=== PATIENT | female | born 1945 | race African-American/Black ===

== ENCOUNTER 2018-08-28 20:23 | Inpatient (IN) | payer MEDICARE, BC ==
[~2018-08-28] VITALS: Ht 170.2 cm; Wt 83.9 kg
[2018-08-28] MEDS ORDERED: SODIUM CHLORIDE 0.9% 1,000 ML IV ONE (21:10)
[2018-08-28 22:20] LABS: BASOPHILS % 0.9 % (0.0-2.0); EOSINOPHILS % 1.5 % (0.0-5.0); HEMATOCRIT. 45.8 % (36.0-48.0); HEMOGLOBIN. 15.7 g/dL (12.0-16.0); LYMPHOCYTES % 34.8 % (20.0-50.0); MEAN CORPUSCULAR VOLUME 90.3 fL (81.0-99.0); MEAN PLATELET VOLUME 9.1 fl (7.4-10.4); MONOCYTES % 8.5 % (2.0-8.0); NEUTROPHILS % 54.3 % (40.0-76.0); PLATELET 135 x1000/uL (130-400); RED BLOOD CELL COUNT 5.08 mill/uL (4.2-5.4); RED CELL DISTRIBUTION WIDTH 14.1 % (11.6-14.6)
[2018-08-28 22:21] LABS: CHLORIDE 102 mEq/L (98-107); INR 1.1; PARTIAL THROMBOPLASTIN TIME 22.7 sec (23.4-31.0); PROTHROMBIN TIME 10.6 sec (9.1-11.1)
[2018-08-28] MEDS ORDERED: ASPIRIN 325MG EC TABLET PO ONE (22:30)
[2018-08-28 23:53] LABS: CLARITY URINE TURBID (CLEAR); COLOR URINE DARK YELLOW (YELLOW); KETONES URINE TRACE (NEGATIVE); LEUKOCYTE ESTERASE URINE TRACE (NEGATIVE); NITRITE URINE NEGATIVE (NEGATIVE); OCCULT BLOOD URINE NEGATIVE (NEGATIVE); PH URINE 5.5 (4.5-8.0); PROTEIN URINE NEGATIVE (NEGATIVE); SPECIFIC GRAVITY URINE 1.028 (1.005-1.030)
[2018-08-29] MEDS ORDERED: LORAZEPAM 2MG/ML CPJ IV PRN (00:30)
[2018-08-29] MEDS ORDERED: ACETAMINOPHEN 325MG TABLET PO PRN (00:30)
[2018-08-29] MEDS ORDERED: MAGNESIUM/ALUMINUM HYDROXIDE/SIMETHICONE 30ML UDC PO PRN (00:30)
[2018-08-29] MEDS ORDERED: ONDANSETRON HCL 4MG/2ML INJ IV PRN (00:30)
[2018-08-29] MEDS ORDERED: DOCUSATE SODIUM 100MG CAPSULE PO PRN (00:30)
[2018-08-29] MEDS ORDERED: NA PHOS,M-B/NA PHOS,DI-BA ENEMA 118ML PR PRN (00:30)
[2018-08-29] MEDS ORDERED: CLONIDINE 0.1MG TABLET PO PRN (00:30)
[2018-08-29] MEDS ORDERED: GUAIFENESIN 200MG/10ML SUGAR FREE UDC PO PRN (00:30)
[2018-08-29] MEDS ORDERED: HYDROCODONE/ACETAMINOPHEN 5/325MG TABLET PO PRN (00:30)
[2018-08-29] MEDS ORDERED: DIPHENHYDRAMINE 50MG/ML VIAL IV PRN (00:30)
[2018-08-29] MEDS ORDERED: MORPHINE SULFATE 4 MG/ML CPJ (NOT FOR IM USE) IV PRN (00:30)
[2018-08-29] MEDS ORDERED: IPRATROPIUM/ALBUTEROL 0.5-3(2.5)MG/3ML NEB INH PRN (00:30)
[2018-08-29] MEDS ORDERED: CEFTRIAXONE 1 G PREMIX 50 ML IV ONE (01:15)
[2018-08-29 04:50] VITALS: BP 120/64
[2018-08-29 05:16] VITALS: BP 120/64
[2018-08-29] MEDS: SODIUM CHLORIDE 0.45% 1,000 ML IV SCH (06:27)
[2018-08-29] MEDS ORDERED: LEVO25TA7 PO (07:49)
[2018-08-29] MEDS ORDERED: DICL100G16 TP (07:49)
[2018-08-29] MEDS ORDERED: TRAZ-212 PO (07:49)
[2018-08-29] MEDS ORDERED: OXCA150T5 PO (07:49)
[2018-08-29] MEDS ORDERED: MELA1TAB9 PO (07:49)
[2018-08-29] MEDS ORDERED: MONT4GRA2 PO (07:49)
[2018-08-29] MEDS ORDERED: CELE50CA PO (07:49)
[2018-08-29] MEDS ORDERED: LISI-186 PO (07:49)
[2018-08-29 08:00] VITALS: BP 113/66
[2018-08-29] MEDS: ENOXAPARIN 40MG/0.4ML SYR SUBCUT SCH (09:29)
[2018-08-29] MEDS: ASPIRIN 81MG EC TABLET PO SCH (09:30)
[2018-08-29 11:54] LABS: CREATINE KINASE 117 IU/L (26-192); CREATINE KINASE MB FRACTION 1.6 ng/mL (0.5-3.6)
[2018-08-29 12:00] VITALS: BP 107/64
[2018-08-29 16:00] VITALS: BP 110/66
[2018-08-29 19:32] LABS: CREATINE KINASE 115 IU/L (26-192); CREATINE KINASE MB FRACTION 1.9 ng/mL (0.5-3.6)
[2018-08-29 20:00] VITALS: BP 117/67
[2018-08-29] MEDS ORDERED: OXCARBAZEPINE 150 MG PO SCH (21:00)
[2018-08-29] MEDS ORDERED: MEDICATION NOT ON FORMULARY EA (Trazodone Hcl 50 MG) PO SCH (21:00)
[2018-08-29] MEDS ORDERED: TRAZODONE HCL 50MG TABLET PO SCH (21:30)
[2018-08-29] MEDS ORDERED: OXCARBAZEPINE 300MG TABLET PO SCH (23:00)
[2018-08-30] VITALS: BP 117/83
[2018-08-30] MEDS: SODIUM CHLORIDE 0.45% 1,000 ML IV SCH (02:13)
[2018-08-30 04:00] VITALS: BP 124/62
[2018-08-30 07:12] LABS: BASOPHILS % 0.9 % (0.0-2.0); EOSINOPHILS % 3.4 % (0.0-5.0); HEMATOCRIT. 40.9 % (36.0-48.0); HEMOGLOBIN. 14.1 g/dL (12.0-16.0); LYMPHOCYTES % 52.2 % (20.0-50.0); MEAN CORPUSCULAR HEMOGLOBIN 31.1 pg (28.0-32.0); MEAN CORPUSCULAR VOLUME 90.3 fL (81.0-99.0); MEAN PLATELET VOLUME 8.1 fl (7.4-10.4); NEUTROPHILS % 35.5 % (40.0-76.0); PLATELET 154 x1000/uL (130-400); RED BLOOD CELL COUNT 4.53 mill/uL (4.2-5.4); RED CELL DISTRIBUTION WIDTH 13.8 % (11.6-14.6)
[2018-08-30 08:00] VITALS: BP 127/79
[2018-08-30] MEDS: ASPIRIN 81MG EC TABLET PO SCH (08:20)
[2018-08-30] MEDS: ENOXAPARIN 40MG/0.4ML SYR SUBCUT SCH (08:22)
[2018-08-30 09:42] LABS: CHLORIDE 104 mEq/L (98-107)
[2018-08-30 09:54] LABS: HDL CHOLESTEROL 46 mg/dL (40-59); LDL CHOLESTEROL 95 mg/dL (5-100); T4 FREE 1.31 ng/dL (0.76-1.46)
[2018-08-30 12:00] VITALS: BP 118/70
[2018-08-30 16:30] VITALS: BP 126/78
== END 2018-08-30 18:26 | disposition home or self-care (01) | DRG 73 ==
LOC: ER 20:23 → 5WST 08-29 00:10 → EDBEDREQ 08-29 00:12 → EDBEDREQTM 08-29 00:12 → ENRESERV 08-29 03:47
PROVIDERS: ADMIT Internal Medicine; ATTEND Internal Medicine
DX: G51.32 Clonic hemifacial spasm, left (principal); G93.41 Metabolic encephalopathy; E46 Unspecified protein-calorie malnutrition; E86.0 Dehydration; I10 Essential (primary) hypertension; J45.909 Unspecified asthma, uncomplicated; Z68.29 Body mass index [BMI] 29.0-29.9, adult
CPT/HCPCS: 36415; 70450; 70551; 71045; 80053; 80061; 81003; 82550; 82553; 84439; 84443; 84484; 85025; 85610; 85730; 93005; 96360; 96361; 99285; J0696; J1650; J7030